=== PATIENT | male | born 1935 | race Caucasian/White ===

== ENCOUNTER 2017-07-19 06:05 | Day surgery (SDC) | payer MEDICARE ==
[~2017-07-19] VITALS: Ht 170.2 cm; Wt 91.0 kg
[~2017-07-19 06:05] MED LIST: 1-ME1LIQ PO; CALCCHW25 PO; ECASA PO; ENAL20TA81 PO; FISH1000 PO; HYDR-2768 PO; LOVA1TAB47 PO; METO50TA PO; NIAC100T3 PO; VITA100017 PO; VITA20003 PO
[2017-07-19] MEDS ORDERED: IOHEXOL 350 MG/ML 50 ML BTL (for Cath Lab) OTHER ONE (06:06)
[2017-07-19] MEDS ORDERED: DO NOT GIVE AM GLUCOPHAGE, GLUCOPHAGE XR, GLIPIZIDE, GLYBURIDE OR AVANDAMET PRN (06:45)
[2017-07-19 06:53] VITALS: BP 163/77; PULSE 71; RESP 18; TEMP 97.9; O2SAT 90
[2017-07-19] MEDS ORDERED: HYDR25TA5 PO (07:22)
[2017-07-19] MEDS ORDERED: LOVA20TA PO (07:22)
[2017-07-19] MEDS ORDERED: OXYGEN NAS.CANULA (07:22)
[2017-07-19] MEDS ORDERED: WARF-23 PO (07:22)
[2017-07-19] MEDS ORDERED: POTA10TA2 PO (07:22)
[2017-07-19] MEDS ORDERED: NITR0.4S SL (07:22)
[2017-07-19] MEDS ORDERED: METO50TA PO (07:22)
[2017-07-19] MEDS ORDERED: ALLO300T2 PO (07:22)
[2017-07-19] MEDS ORDERED: VENTAER INH (07:22)
[2017-07-19] MEDS ORDERED: IPRASOL INH (07:22)
[2017-07-19] MEDS ORDERED: TRIA.1%T TOPICAL (07:22)
[2017-07-19] MEDS ORDERED: BUME2TAB PO (07:22)
[2017-07-19] MEDS ORDERED: CARA0.5C TOPICAL (07:22)
[2017-07-19] MEDS ORDERED: HYDR-3133 PO (07:22)
[2017-07-19] MEDS ORDERED: OMEGCAP PO (07:22)
[2017-07-19 07:48] LABS: INTERNATIONAL NORMALIZED RATIO 1.2 RATIO; PROTHROMBIN TIME - PATIENT 12.2 SEC (9.8-11.6)
[2017-07-19] MEDS ORDERED: HEPARIN-NS/PF INJ 500 ML ONE ×2 (08:07→08:37)
[2017-07-19] MEDS ORDERED: MIDAZOLAM HCL 5 MG/5 ML VIAL ONE (08:07)
[2017-07-19] MEDS ORDERED: SODIUM CHLOR 0.9% 1000 ML INJ 1,000 ML IV SCH (09:01)
--- NOTE | 2017-07-19 09:06 | CATHPROC ---
[employer] HIS Report Study Information Study Number Admission Scheduled Start Study Start [id number] Jul 19 2017 6:05AM 07/19/2017 Jul 19 2017 8:01AM [place] Service Cath Endovascular Study Admit Source Facility Department Other [facility] - Yeast Culture Developer Physician and Clinical Staff Initial Kev Pickett Black Powder Glazing Operator Percy Albarado,MILAGROS Other cathlab, cathlab Recorder Matthew Vazquez RCIS(BS) Recorder Jose Hamm,RT(R) Scrub Mahendra EatonRT(R) Procedures Performed Procedure Location (Site) Vessel Name Angiogram (manual) Abd Aorta (A3) Aorta Angiogram (manual) Fem R. Com (R7) Femoral Art Angiogram (manual) Iliac L. Com. (L4) Illiac Art. Angiogram (manual) Popliteal L (L10) Popliteal Angiogram (manual) SFA (left) Femoral Art Angiogram (manual) SFA (right) Femoral Art Angiogram (manual) Tib, Ant. (left) Popliteal Angiogram (manual) Tib, Ant. (right) Popliteal Wire insertion Fem Art (right) Femoral Art Equipment Time Credit Assessment Analyst Description Size Mfg Part Number Used/Scraped [id number] 08:09 CORDIS/ JAEL RIM SUPER TORQUE CATHETER FR 5 Used *[id number] [id number] *[id number] [id number] *[id number] 08:09 MALLINCKRODT SYRINGE, ANGIOMAT 150ML 150ML [id number] Used [id number] 08:09 [employer] INDUSTRIES PACK, CCL CUSTOM * Used *[id number] 08:09 [employer] PACER PEN, SKIN DUAL W/ RULER * Used *[id number] 08:09 [place] MEDICAL WIRE, EXCHANGE 260CM 3MMJ 260CM Used *[id number] 08:09 NAMIC MANIFOLD, 4 PORT * Used *[id number] 08:09 NAMIC TUBING, HIGH PRESSURE 48" 48" Used *[id number] TUBING, PRESSURE INJECTION [id number] 08:09 NAMIC 72" Used 72" *[id number] 08:09 NYCOMED OMNIPAQUE, 300 MG, 150ML 150ML [id number] Used [id number] 08:09 NEFF MEDICAL BLANKET,WARM AIR CCL * Used *[id number] 08:09 TERUMO MEDICAL SHEATH, FR5 TERUMO (10CM) FR 5 Used *[id number] WIRE, ANGLE GLIDE STIFF .035 [id number] 08:09 TERUMO MEDICAL/JAEL 260CM Used 260CM *[id number] History: Current Medications Medication Dosage/Unit Route Frequency Last Date/Time Taken Statins (any) Allopurinol History: Allergies Allergy Reaction No Known Allergies amiodarone History: Risk Factors Family History of Hypertension Dyslipidemia Previous AR Previous Heart Failure Premature CAD Yes Yes Yes No No Prior Valve Prior PCI Prior CABG Surgery No No No Cerebrovascular Peripheral Artery Chronic Lung On Dialysis Diabetes Disease Disease Disease No Yes Yes Yes No History: CV Disease Selection Items Known CAD History: Stress Tests Stress or Imaging Studies Performed No History: Arrhythmias Selection Items Atrial fibrillation History: Other Disease Selection Items CAD HTN History: Other Current Smoker Method Quit Packs a Day Years Used Pack Years No Cigarettes 15 Years Ago 2 45 90 Labs Hgb (g/dl) Hct (%) WBC (l/cumm) Platelets (thousands) 11.60-17.00 35.00-51.00 4.00-11.00 150.00-450.00 16.2 53.2 8 121 Glucose (mg/dl) BUN (mg/dl) Creatinine (mg/dl) BUN:Creatinine (1:x) 74.00-106.00 7.00-18.00 0.50-1.30 10.00-20.00 112 71 2.2 32.3 Na (meq/l) K (meq/l) 136.00-145.00 3.50-5.10 142 4.4 INR (PTT:PT) 0.90-1.10 2.1 CPK-MB (ng/ML) 0.50-3.60 Not Drawn Medication Medication Total Dose (Bolus/Oral) Medication Total Dosage/Unit 1% XYLOCAINE 40 mL FENTANYL 25 mcg VERSED 1 mg Medications (Bolus/Oral) Medication Time Given Dosage/Unit Administered By Reason 1% XYLOCAINE 07/19/2017 8:30:14 AM 20 mL cathlab, cathlab Patient arrived on 20 mL 1% XYLOCAINE given by cathlab, cathlab via Subcutaneous. Ordered by Vineet Toth. 1% XYLOCAINE 07/19/2017 8:30:30 AM 20 mL Kev Toth 20 mL 1% XYLOCAINE given in lab by Kev Toth in Right Groin via Subcutaneous. Ordered by Kev Toth. VERSED 07/19/2017 8:31:54 AM 1 mg Kev Toth 1 mg VERSED given in lab by Kev Toth via Peripheral IV. Ordered by Kev Toth. FENTANYL 07/19/2017 8:32:31 AM 25 mcg Percy Albarado 25 mcg FENTANYL given in lab by Percy Albarado RN via Peripheral IV. Ordered by Kev Toth. Medication (Drip) Medication Time Given Dosage/Unit Concentration/Unit Diluent (ml) Solutio n IV Solutions 07/19/2017 8:01:22 AM 0 mL (IV) 500 NaCl .9 Patient arrived on IV Solutions given by cathlabdick in Left Antecubital via Peripheral IV. Pump /Drip Flow = 20 ml/hr using NaCl .9. Ordered by Kev Toth. Initial Case Assessment Cardiovascular HR Rhythm NIBP Chest Pain 47 moris 138/71 0 Edema Present Skin color Skin None Normal Warm Dry Neurological State Oriented to time-place- Alert Moves all extremities person Respiration - General Respiration Rate SpO2 (%) (B/min) 15 96 Final Case Assessment Cardiovascular HR Rhythm NIBP Chest Pain 51 Sinus 144/72 0 Edema Present Skin color Skin None Normal Warm Dry Neurological State Oriented to time-place- Alert Moves all extremities person Respiration - General Respiration Rate SpO2 (%) O2 (lpm) (B/min) 18 92 2 Chronological Log Time Study Chronological Log 8:01:12 Patient arrived via Bed. 8:01:13 Patient Name, D.O.B, / Armband Verified By R.N. 8:01:14 Consent signed by the physician and the patient and verified by the Yeast Culture Developer staff. 8:01:14 Pre-op and post- op instructions given; patient acknowledges understanding of instructions. 8:01:15 Verbal Stimulation=2 Physical Stimulation=2 Airway=2 Respiration=2 TOTAL=8. (0=absent, 1=young ited, 2=present) 8:01:16 Presedation assessment performed by Yeast Culture Developer RN. 8:01:16 Immediate Presedation assesment performed by physician. 8:01:18 Patient has been NPO for More than 6Hrs. 8:01:19 Skin Breakdown- none per patient 8:01:19 Patient Warmer Placed on the Table. 8:01:20 Josue Prominences Protected 8:01:21 A # 20 IV was noted in the Antecubital (left). Grade = 0 Patient arrived on IV Solutions given by cathlab, cathlab in Left Antecubital via Peripheral IV. Pump/Drip Flow = 20 8:01:22 ml/hr using NaCl .9. Ordered by Kev Toth. 8:01:25 History and physical on the chart or being dictated. Vitals capture started with the following parameters, Patient=Adult, Interval=5 min, Initial Pre fiupn=221 mmHg, 8:09:31 Deflation Rate=5 mmHg, Cuff placed on Right Ankle Assessment: Initial Case, HR=47 BPM, Rhythm=moris, OWMY=163/71 mmhg, Chest Pain=0, Edema=None, Color=Normal, Skin = Warm, Dry 8:09:33 Neurological: State=Alert, Ox3, HUERTAS Respiration: Resp=15 B/min, SpO2=96 % 8:10:14 Reference ECG taken 8:10:17 HR=53 bpm, YDRY=996/71 mmhg, SpO2=96.0 %, Resp=19 B/min, Pain=0, Maryann=10, Cheung=2 8:14:25 MD arrived. 8:15:10 HR=66 bpm, XRNT=044/83 mmhg, SpO2=96.0 %, Resp=15 B/min, Pain=0, Maryann=10, Cheung=2 8:17:05 Bilateral groins prepped with 2% chlorhexidine, and draped after a 3 minute waiting time. 8:17:30 Immediate Presedation assesment performed by physician. 8:17:31 Presedation re-assessment performed by Yeast Culture Developer RN. 8:20:11 HR=65 bpm, MSLC=050/87 mmhg, SpO2=95.0 %, Resp=19 B/min, Pain=0, Maryann=10, Cheung=2 8:22:11 Pressure channel 1 zeroed. Time Out. Correct patient, correct procedure, correct physician, labs, allergies, and equipment verified with laborer shaft sinking 8:22:43 team present. Fire risk assesment completed (see hard stop sheet for coding). Time Out Concu rred by MD and individual staff in procedure. 8:23:16 Pressure channel 1 zeroed. 8:25:16 HR=57 bpm, GYZA=906/73 mmhg, SpO2=88.0 %, Resp=15 B/min, Pain=0, Maryann=10, Cheung=2 8:26:59 Case Start 8:30:14 Patient arrived on 20 mL 1% XYLOCAINE given by dick jennings via Subcutaneous. Ordered by Kev Toth. 8:30:15 HR=58 bpm, BMSF=189/74 mmhg, SpO2=88.0 %, Resp=13 B/min, Pain=0, Maryann=10, Cheung=2 8:30:30 20 mL 1% XYLOCAINE given in lab by Kev Toth in Right Groin via Subcutaneous. Ordered b y Kev Toth. 8:31:34 Access site was Right Femoral Artery. 8:31:54 1 mg VERSED given in lab by Kev Toth via Peripheral IV. Ordered by Kev Toth. 8:32:31 25 mcg FENTANYL given in lab by Percy Albarado, MILAGROS via Peripheral IV. Ordered by Flavio Toth. 8:32:44 A SHEATH, FR5 TERUMO (10CM) FR 5 was advanced into the Fem Art (right) using the Percutaneou s technique. A PIGTAIL ANG. INFINITI CATHETER FR 5 was advanced over a wire. OMNIPAQUE, 300 MG, 150ML 150ML w as used 8:32:51 for injections. 8:34:23 Abd Aorta (A3) angiogram, manually injected. 8:35:14 HR=77 bpm, XJJD=808/89 mmhg, SpO2=92.0 %, Resp=11 B/min, Pain=0, Maryann=10, Cheung=2 8:35:21 A WIRE, ANGLE GLIDE STIFF .035 260CM 260CM was inserted via Fem Art (right). 8:39:56 Abd Aorta (A3) angiogram, manually injected. 8:40:58 HR=65 bpm, BFIL=255/82 mmhg, SpO2=95.0 %, Resp=11 B/min, Pain=0, Maryann=10, Cheung=2 8:41:40 Abd Aorta (A3) angiogram, manually injected. 8:45:23 HR=52 bpm, FFLQ=233/60 mmhg, SpO2=93.0 %, Resp=27 B/min, Pain=0, Maryann=10, Cheung=2 8:46:45 Iliac L. Com. (L4) angiogram, manually injected. 8:47:12 SFA (left) angiogram, manually injected. 8:49:58 SFA (left) angiogram, manually injected. 8:50:06 ~SITE~ angiogram, manually injected.p 8:50:14 HR=68 bpm, MWWH=930/73 mmhg, SpO2=93.0 %, Resp=17 B/min, Pain=0, Maryann=10, Cheung=2 8:50:17 Tib, Ant. (left) angiogram, manually injected. 8:51:45 Catheter was removed 8:52:39 Fem R. Com (R7) angiogram, manually injected. 8:52:45 SFA (right) angiogram, manually injected. 8:54:18 SFA (right) angiogram, manually injected. 8:54:59 Tib, Ant. (right) angiogram, manually injected. 8:55:19 HR=70 bpm, PTEC=945/72 mmhg, SpO2=92.0 %, Resp=16 B/min, Pain=0, Maryann=10, Cheung=2 8:55:45 Tib, Ant. (right) angiogram, manually injected. 8:56:21 Case End Assessment: Final Case, HR=51 BPM, Rhythm=Sinus, IJLE=014/72 mmhg, Chest Pain=0, Edema=None, Color=Normal, Skin = Warm, Dry 8:59:09 Neurological: State=Alert, Ox3, HUERTAS Respiration: Resp=18 B/min, SpO2=92 %, O2=2 lpm 9:00:16 HR=63 bpm, XONN=767/75 mmhg, SpO2=91.0 %, Resp=18 B/min, Pain=0, Maryann=10, Cheung=2 9:01:23 Sheath(s) left in place, will be removed in Holding Area 9::27 Sterile dressing applied to site 9::28 No case complications noted. 9:01:29 Cine recording checked. 9:01:34 Bedside Report will be given. 9:05:06 Vitals capture stopped. 9:05:33 Patient moved to stretcher End Study - Contrast Media Used In Study Contrast Total Opened (mL) Total Used (mL) Total Wasted (mL) Omnipaque 150 30 120 End Study - Maximum Contrast Load Max Contrast Load (mL) 206.8 End Study - Radiation Exposure Fluoro Time (minutes) 3.6 End Study - Patient Disposition Complications Transferred To Interventional Outcome No Outpatient Bed No attempt made
[2017-07-19] MEDS ORDERED: ATROPINE SULFATE 1 MG/ML VIAL IV PUSH PRN (09:15)
[2017-07-19] MEDS ORDERED: LIDOCAINE HCL 1% 50 ML VIAL INFIL PRN (09:15)
[2017-07-19] MEDS ORDERED: SODIUM CHLOR 0.9% 250 ML INJ 250 ML IV PRN (09:15)
[2017-07-19] MEDS ORDERED: LORazepam 2 MG/ML VIAL IV PUSH PRN (09:15)
[2017-07-19] MEDS ORDERED: BACITRACIN OINT 0.9 GM PKT TOP ONE (09:15)
[2017-07-19] MEDS ORDERED: oxyCODONE/ACETAMINOPHEN 5 MG/325 MG TAB PO PRN (09:15)
[2017-07-19] MEDS ORDERED: MISC INFORMATION XX ONE (09:15)
--- NOTE | 2017-07-19 09:40 | MA ---
cc: Kev Toth MD DATE: 07/19/2017 Peripheral angiography. PROCEDURES PERFORMED: 1. Descending aortography. 2. Bilateral lower extremity peripheral angiography with first, second, third order visualization interpretation. METHOD: Risks, benefits and alternatives discussed with the patient. The patient understood and consented to the procedure. DESCRIPTION OF PROCEDURE: The patient brought into the catheterization lab and placed on the catheterization table. The right lower extremity was anesthetized with the common femoral artery. The common femoral artery was cannulated and a 5-Danish, 11 cm sheath was placed without difficulty. DESCENDING AORTOGRAPHY: Descending aortography was performed in an anteroposterior view. There is moderate eccentric calcific stenosis within the aorta. There is also what appears to be inferior mesenteric artery and might have a stenosis at the origin. There was also heavily calcified eccentric stenosis at the bifurcation of the iliac arteries. PERIPHERAL ANGIOGRAPHY: 1. The right common iliac artery has a 90% eccentric stenosis at the bifurcation. The remainder of the common, in addition, to the external and internal iliac has had bilateral irregularities. The right common femoral, profunda, superficial femoral, popliteal, anterior tibial, posterior tibial arteries have minor luminal irregularities. Peroneal is not well visualized. 2. The left common iliac artery has what appears to be 80% tandem stenosis. The remainder of the common iliac artery has minor luminal irregularities. The left internal and external iliac arteries, common femoral, profunda, superficial femoral artery, popliteal, anterior tibial, posterior tibial and peroneal vessels have minor luminal irregularities. Peroneal is not well visualized. CONCLUSIONS: Moderate descending aortic atherosclerosis and moderate descending infrarenal aortic atherosclerosis with severe bifurcation common iliac artery stenosis. PLAN: Given the location of the bifurcation with the eccentric calcific stenosis, we will consult Dr. Greer for consideration of either endograft versus open abdominal repair. Kev Toth MD DOUG/DL , 09:06 AM , 09:39 AM
--- NOTE | 2017-07-19 11:17 | PD.VS.CON ---
History of Present Illness Chief Complaint: PVD Consult Requested by: Dr. Toth History of Present Illness 82/M with a PMH of COPD, CKD (IV), CHF, CAD, HTN and PVD Pt presented today for a bilateral lower extremity angiogram with findings of moderate descending aortic atherosclerosis and moderate descending infrarenal aortic atherosclerosis with severe bifurcation common iliac artery stenosis Pt denied claudication or rest pain, however endorsed he has trouble walking due to severe arthritic knees Pt c/o B LE chronic swelling Lipodermatosclerosis present to B LE LE warm w/ motor intact Pt ambulates with a walker Past/Family/Social History Past Medical History COPD CKD (stage 4) HTN PVD CHF CAD Past Surgical History R CEA Appendectomy Home Medications Reported Medications Warfarin (Warfarin) 5 Mg Tab, 5 MG PO DAILY for Blood Clot Prevention, #30 TAB 0 Refills 07/19/17 Albuterol 18 GM Inh (Ventolin Hfa 18 GM Inh) 90 Mcg/Act Aer, 2 PUFF INH Q4-6H Y for SHORTNESS OF BREATH, #1 INHALER 0 Refills 07/19/17 Triamcinolone Topical (Triamcinolone Topical) 0.1% Cream, 1 APPLIC TOPICAL BID for Inflammation, GM 0 Refills 07/19/17 Potassium Chloride ER (Potassium Chloride ER) 10 Meq Tab, 10 MEQ PO BID for Electrolyte Replacement, #60 TAB 0 Refills 07/19/17 [oxygen(home)] No Conflict Check, 2 LITER SELENA.CANULA DAILY 07/19/17 Nitroglycerin SL (Nitrostat SL) 0.4 Mg Subl, 0.4 MG SL DIRECTED Y for CHEST PAIN, #100 TAB.SL 0 Refills 1 tablet under the tongue as needed for chest pain. Repeat every 5 minutes for a total of 3 DOSES or call 911 if NO relief. 07/19/17 Metoprolol Tartrate (Metoprolol Tartrate) 50 Mg Tab, 50 MG PO BID, #60 TAB 0 Refills 07/19/17 Lovastatin (Lovastatin) 20 Mg Tab, 20 MG PO DAILY for Cholesterol Management, # 30 TAB 0 Refills 07/19/17 Ipratropium-Albuterol Neb (Duoneb) 0.5-2.5 Mg/3 Ml Neb, 1 NEBULE INH Q6HR NEB for Breathing Treatment, #120 NEBULE 0 Refills 07/19/17 Hydroxyzine HCl (Hydroxyzine HCl) 25 Mg Tab, 25 MG PO QID Y for ITCHING, TAB 0 Refills 07/19/17 Hydrochlorothiazide (Hydrochlorothiazide) 25 Mg Tab, 25 MG PO DAILY, #30 TAB 0 Refills 07/19/17 Fluorouracil (Topical) (Carac) 0.5 % Cre, 5 APPLIC TOPICAL BID 07/19/17 Fish Oil-Cholecalciferol (Worden-3 Fish Oil/Vitamin) 1,000-1,000 Mg Cap, 1 CAP PO DAILY for Nutritional Supplement, CAP 0 Refills 07/19/17 Bumetanide (Bumetanide) 2 Mg Tab, 2 MG PO DAILY, TAB 0 Refills 07/19/17 Allopurinol (Allopurinol) 300 Mg Tab, 300 MG PO DAILY for Gout, #30 TAB 0 Refills 07/19/17 Coded Allergies: amiodarone (Verified Allergy, Severe, 07/19/17) Review of Systems Constitutional: DENIES: Fever, Chills Respiratory: DENIES: Shortness of breath Cardiovascular: COMPLAINS OF: Lower Extremity Edema (Slight LE swelling/ Lipodermatosclerosis present to B LE ), DENIES: Chest pain, Claudication Gastrointestinal: DENIES: Abdominal pain Integumentary: COMPLAINS OF: Abnormal pigmentation Physical Exam Vitals/I&O Date Time Temp Pulse Resp B/P (MAP) Pulse Ox O2 Delivery O2 Flow Rate FiO2 07/19/17 09:15 96 Nasal Cannula 2.00 07/19/17 06:53 97.9 71 18 163/77 (105) 90 Neuro: A&OX3 GCS 15 Speech clear HEENT: BERTA Neck: No JVD distention Heart: RRR Lungs: CTA Abdomen: S/NT R groin with hematoma or swelling Dressing C/D Vascular: Non palpable R/L distal pulses LE warm w/ motor intact Mild LE swelling noted Lipodermatosclerosis present- B LE Extremities: Denied claudication/rest pain R/L Knee pain present Laboratory Tests Test 07/19/17 07:24 Prothrombin Time 12.2 Prothromb Time International Ratio 1.2 Assessment and Plan Assessment: (1) PVD (peripheral vascular disease) Plan 82/M s/p diagnostic R/L angiogram Findings: Moderate descending aortic atherosclerosis and moderate descending infrarenal aortic atherosclerosis with severe bifurcation common iliac artery stenosis Pt denied claudication/rest pain Pt c/o chronic B LE swelling and knee pain with ambulation Plan Will obtain recent [facility] ([facility]) for further review Arranged out pt f/u in 2W with a surveillance JOEY Pt made aware of plan Cristine Gutierrez NP [facility] [phone] Cristine Gutierrez [facility] July 19, 2017 11:17
== END 2017-07-19 15:11 | disposition home or self-care (01) ==
LOC: HDOC 06:05 → HDIC 06:12 → HDOC 15:11
PROVIDERS: ATTEND Internal Medicine
DX: I73.9 Peripheral vascular disease, unspecified (principal); I70.0 Atherosclerosis of aorta; Q25.1 Coarctation of aorta; I65.29 Occlusion and stenosis of unspecified carotid artery; I35.0 Nonrheumatic aortic (valve) stenosis; N18.4 Chronic kidney disease, stage 4 (severe); J20.9 Acute bronchitis, unspecified; J06.9 Acute upper respiratory infection, unspecified; J30.9 Allergic rhinitis, unspecified; M19.90 Unspecified osteoarthritis, unspecified site; I25.10 Atherosclerotic heart disease of native coronary artery without angina pectoris; R01.1 Cardiac murmur, unspecified; J44.9 Chronic obstructive pulmonary disease, unspecified; R31.9 Hematuria, unspecified; E78.5 Hyperlipidemia, unspecified; I25.2 Old myocardial infarction; I12.9 Hypertensive chronic kidney disease with stage 1 through stage 4 chronic kidney disease, or unspecified chronic kidney disease; D69.3 Immune thrombocytopenic purpura; R60.9 Edema, unspecified; M25.569 Pain in unspecified knee; Q61.5 Medullary cystic kidney; M70.21 Olecranon bursitis, right elbow; M17.0 Bilateral primary osteoarthritis of knee; I27.20 Pulmonary hypertension, unspecified; I49.3 Ventricular premature depolarization; N25.81 Secondary hyperparathyroidism of renal origin; R79.0 Abnormal level of blood mineral; D69.6 Thrombocytopenia, unspecified; J96.90 Respiratory failure, unspecified, unspecified whether with hypoxia or hypercapnia; E66.3 Overweight; B35.3 Tinea pedis; L70.0 Acne vulgaris; B35.4 Tinea corporis; Z99.81 Dependence on supplemental oxygen; Z87.891 Personal history of nicotine dependence
CPT/HCPCS: 36245; 75716; 85610; 86850; 86900; 86901; 99152; 99153; C1769; C1893; J1644; J2250; J3010; Q9967